=== PATIENT | female | born 1985 | race Caucasian/White ===

== ENCOUNTER 2020-02-05 14:35 | Emergency (ER) | payer SELFPAY ==
[~2020-02-05] VITALS: Ht 170.2 cm; Wt 94.1 kg
[2020-02-05 14:44] VITALS: BP 136/87
== END 2020-02-05 14:58 | disposition home or self-care (01) ==
LOC: ER 14:35
DX: Z04.3 Encounter for examination and observation following other accident (principal); V89.2XXA Person injured in unspecified motor-vehicle accident, traffic, initial encounter; Y93.89 Activity, other specified; Y92.488 Other paved roadways as the place of occurrence of the external cause; Y99.8 Other external cause status
CPT/HCPCS: 99283

== ENCOUNTER 2021-11-09 14:50 | Outpatient (CLI) | payer BC | END 2021-11-09 23:59 | disposition home or self-care (01) | LOC: VAS 14:50 | PROVIDERS: ATTEND Internal Medicine Critical Care Medicine | DX: R06.02 Shortness of breath (principal); R60.9 Edema, unspecified; R79.1 Abnormal coagulation profile | CPT/HCPCS: 93970 ==

== ENCOUNTER 2023-12-09 14:41 | Outpatient (CLI) | payer BC ==
[~2023-12-09 14:41] MED LIST: ACET1TAB25 PO; NAPR-56 PO
== END 2023-12-09 23:59 | disposition home or self-care (01) ==
LOC: RAD 14:41
PROVIDERS: ATTEND Surgery
DX: K44.9 Diaphragmatic hernia without obstruction or gangrene (principal); K21.9 Gastro-esophageal reflux disease without esophagitis
CPT/HCPCS: 74220